=== PATIENT | male | born 1975 | race African-American/Black ===

== ENCOUNTER 2017-11-16 23:16 | Emergency (ER) | payer MEDICAID, MEDICARE ==
[~2017-11-16] VITALS: Ht 180.3 cm; Wt 75.0 kg
[2017-11-17] MEDS ORDERED: TETANUS, DIPHTHERIA, PERTUSSIS VAC/PF 0.5ML (>7YR OLD) IM ONE
[2017-11-17 00:08] VITALS: BP 118/65
== END 2017-11-17 00:09 | disposition home or self-care (01) ==
LOC: ER 23:16
DX: L03.115 Cellulitis of right lower limb (principal); F12.10 Cannabis abuse, uncomplicated
CPT/HCPCS: 90471; 90715; 99283